=== PATIENT | female | born 1970 | race Caucasian/White ===

== ENCOUNTER 2021-10-27 12:30 | Emergency (ER) | payer BC ==
[~2021-10-27] VITALS: Ht 167.6 cm; Wt 70.3 kg
[2021-10-27] MEDS ORDERED: CYCLOBENZAPRINE10 MG PO (13:11)
== END 2021-10-27 13:20 | disposition home or self-care (01) ==
LOC: ER 12:47
DX: M62.838 Other muscle spasm (principal)
CPT/HCPCS: 99282